=== PATIENT | female | born 1990 | race Caucasian/White ===

== ENCOUNTER 2016-06-21 01:09 | Emergency (ER) | payer MEDICAID ==
[~2016-06-21] VITALS: Ht 172.7 cm; Wt 109.5 kg
[2016-06-21 01:37] VITALS: Ht 172.7 cm; Wt 109.5 kg
[2016-06-21] MEDS ORDERED: ONDANSETRON 4 MG INJ IV STA (03:12)
[2016-06-21] MEDS ORDERED: SOD CHLORIDE 0.9% 1,000 ML IV STA (03:12)
[2016-06-21] MEDS ORDERED: PRENAT PO (03:18)
--- NOTE | 2016-06-21 03:18 | ERD ---
ER Documentation Chief Complaint Date/Time DATE: 06/21/16 TIME: 03:17 Chief Complaint 16 WKS WITH SEVERE N/V/D STARTING TODAY HPI 26-year-old female presents to emergency department for complaints of nausea vomiting diarrhea started today. Patient had 2 episodes of vomiting, multiple episodes of diarrhea. Patient is complaining of generalized abdominal pain, cramping pain, 4/10 scale, accompanying the symptoms. Patient's approximate 16 weeks . Patient also is complaining of bilateral flank pain. Patient denies any vaginal bleeding. Patient denies any vaginal discharge. ROS All systems reviewed and are negative except as per history of present illness. Medications Home Meds Reported Medications Multivit/Min/Fol Ac/Iron/Pren* ( S*) Unknown Strength Tab, PO DAILY, TAB 06/21/16 Allergies Allergies: Coded Allergies: No Known Allergy (Unverified , 06/21/16) PMhx/Soc Medical and Surgical Hx: pt denies Medical Hx, pt denies Surgical Hx FmHx Family History: No coronary disease, No diabetes, No other Physical Exam Vitals Vital Signs Date Time Temp Pulse Resp B/P Pulse Ox O2 Delivery O2 Flow Rate FiO2 06/21/16 01:37 98.1 79 18 155/70 99 Physical Exam GENERAL: The patient is well developed and appropriate for usual state of health, in no apparent distress. CHEST: Clear to auscultation bilaterally. There are no rales, wheezes or rhonchi. HEART: Regular rate and rhythm. No murmurs, clicks, rubs or gallops. No S3 or S4. ABDOMEN: Soft, nontender and nondistended. Hyperactive bowel sounds. No rebound or guarding. No gross peritonitis. No gross organomegaly or masses. No Balbuena sign or McBurney point tenderness. BACK: No midline or flank tenderness. EXTREMITIES: Equal pulses bilaterally. There is no peripheral clubbing, cyanosis or edema. No focal swelling or erythema. Full range of motion. Grossly neurovascularly intact. NEURO: Alert and oriented. Cranial nerves 2-12 intact. Motor strength in all 4 extremities with 5/5 strength. Sensation grossly intact. Normal speech and gait. SKIN: There is no apparent rash or petechia. The skin is warm and dry. HEMATOLOGIC AND LYMPHATIC: There is no evidence of excessive bruising or lymphedema. No gross cervical, axillary, or inguinal lymphadenopathy. Result Diagram: 06/21/16 0349 06/21/16 0349 Results 24 hrs Laboratory Tests Test 06/21/16 03:49 Alanine Aminotransferase (ALT/SGPT) 23IU/L Albumin 3.9g/dl Albumin/Globulin Ratio 1.14 Alkaline Phosphatase 51IU/L Anion Gap 19 Aspartate Amino Transf (AST/SGOT) 17IU/L Basophils # 0.010^3/ul Basophils % 0.1% Blood Urea Nitrogen 8mg/dl Calcium Level 8.9mg/dl Carbon Dioxide Level 21mmol/L Chloride Level 104mmol/L Creatinine 0.48mg/dl Direct Bilirubin 0.00mg/dl Eosinophils # 0.110^3/ul Eosinophils % 0.8% Globulin 3.40g/dl Glucose Level 87mg/dl Hematocrit 34.3% Hemoglobin 11.6g/dl Indirect Bilirubin 0.0mg/dl Lipase 65U/L Lymphocytes # 2.210^3/ul Lymphocytes % 15.4% Mean Corpuscular Hemoglobin 26.5pg Mean Corpuscular Hemoglobin Concent 33.8g/dl Mean Corpuscular Volume 78.5fl Mean Platelet Volume 10.4fl Monocytes # 0.810^3/ul Monocytes % 5.5% Neutrophils # 10.910^3/ul Neutrophils % 77.7% Nucleated Red Blood Cells # 0.010^3/ul Nucleated Red Blood Cells % 0.0/100WBC Platelet Count 47342^3/UL Potassium Level 3.6mmol/L Red Blood Count 4.3710^6/ul Red Cell Distribution Width 14.1% Sodium Level 140mmol/L Total Bilirubin 0.0mg/dl Total Protein 7.3g/dl Urine Bilirubin NEGATIVE Urine Clarity CLEAR Urine Color LT. YELLOW Urine Glucose NEGATIVE% Urine Hemoglobin 1+ Urine Ketones NEGATIVE Urine Leukocyte Esterase NEGATIVE Urine Microscopic RBC Pending Urine Microscopic WBC Pending Urine Nitrite NEGATIVE Urine Specific Sumner 1.025 Urine Total Protein NEGATIVE Urine Urobilinogen 0.2 E.U./dL Urine pH 6.0 White Blood Count 14.110^3/ul Current Medications Medications (Trade) Dose Ordered Sig/Jcarlos Route PRN Reason Start Time Stop Time Status Last Admin Dose Admin Sodium Chloride (NS) 1,000 ml @ 1,000 mls/hr Q1H STAT IV 06/21/16 03:12 06/21/16 04:11 DC 06/21/16 04:10 Ondansetron HCl (Zofran Inj) 4 mg ONCE STAT IV 06/21/16 03:12 06/21/16 03:14 DC Patient was given Zofran here in the emergency department. After treatment, patient was able to tolerate po fluids here in the emergency department without any vomiting. There is no signs and symptoms of dehydration. Normal saline IV bolus was given here in emergency department for rehydration, patient tolerated IV fluids. PROCEDURE: ULTRASOUND OBSTETRICAL CLINICAL INDICATION: 26-year-old female with pelvic pain. TECHNIQUE: Multiple sonographic images of the pelvis were obtained. The images were reviewed on a PACS workstation. COMPARISON: No prior studies are available for comparison. FINDINGS: The cervix is not well visualized. There is a single viable intrauterine gestation. Cardiac activity is present with 161 beats per minute. There is a variable presentation. Measurements were made in order to determine age. The results are as follows: BPD = 3.53 cm, HC = 12.83 cm, AC = 11.07 cm, FL = 2.38 cm. This yields and estimated gestational age of approximately 16 weeks 6 days. The estimated date of delivery is November 30, 2016. The EFW = 176 +/- 26 g. The GP is 79%. The placenta is posterior. There is no evidence for an abruption or placenta previa. There is an adequate amount of amniotic fluid with an the maximal vertical pocket of 4.5 cm. IMPRESSION: Single viable intrauterine gestation of approximately 16 weeks 6 days. The estimated date of delivery is November 30, 2016. .Hesham Gates MD, MD Date Time Electronically viewed and signed by .Hesham Gates MD, on 06/21/2016 04:36 Procedures/MDM Medical Decision Making: Patient's symptoms is like is consistent with viral gastroenteritis. No symptoms of dehydration at this time. ULTRASOUND shows a viable . There is low suspicion for abdominal emergencies at this time. Patients abdominal exam is normal at this time. Patients radiology exam does not show any abdominal emergencies at this time. There is low suspicion for appendicitis, cholecystitis, abdominal aortic aneurysms or peritonitis at this time. There is low suspicion for sepsis. Patient appears well and is hemodynamically stable. Disposition: Home. Condition: Stable Prescription Zofran, Tylenol Instructions: Patient is advised to take medications as prescribed. Patient is advised to rest, increase fluid intake and do brat diet for next 1-2 days and progress as tolerated. Patient is advised that if symptoms are worse, severe abdominal pain, uncontrolled vomiting, high fever, severe flank pain, worst signs and symptoms, to return to the emergency department immediately. Otherwise, patient can follow up with primary care doctor in 5-7 days. Departure Diagnosis: Primary Impression: Viral gastroenteritis Additional Impression: Intrauterine Condition: Stable Patient Instructions: Gastroenteritis, Viral (6Y-Adult) Additional Instructions: Patient is advised to take medications as prescribed. Patient is advised to rest, increase fluid intake and do brat diet for next 1-2 days and progress as tolerated. Patient is advised that if symptoms are worse, severe abdominal pain , uncontrolled vomiting, high fever, severe flank pain, worst signs and symptoms , to return to the emergency department immediately. Otherwise, patient can follow up with primary care doctor in 5-7 days. ARTIE GARAY NP Jun 21, 2016 03:18
[2016-06-21 04:02] LABS: ADD SCAN DIFF NO
[2016-06-21 04:08] LABS: ADD UMIC YES; BASOPHILS % 0.1 % (0.0-2.0); EOSINOPHILS # 0.1 10^3/ul (0.0-0.5); EOSINOPHILS % 0.8 % (0.0-7.0); HEMATOCRIT 34.3 % (37.0-47.0); HEMOGLOBIN 11.6 g/dl (12.0-16.0); LYMPHOCYTES # 2.2 10^3/ul (0.8-2.9); LYMPHOCYTES % 15.4 % (15.0-51.0); MEAN CORPUSCULAR HEMOGLOBIN 26.5 pg (29.0-33.0); MEAN CORPUSCULAR HGB CONC 33.8 g/dl (32.0-37.0); MEAN CORPUSCULAR VOLUME 78.5 fl (82.0-101.0); MEAN PLATELET VOLUME 10.4 fl (7.4-10.4); MONOCYTE # 0.8 10^3/ul (0.3-0.9); MONOCYTES % 5.5 % (0.0-11.0); NEUTROPHIL # 10.9 10^3/ul (1.6-7.5); NEUTROPHILS % 77.7 % (39.0-77.0); PLATELET COUNT 310 10^3/UL (140-415); RED BLOOD COUNT 4.37 10^6/ul (4.20-5.40); RED CELL DISTRIBUTION WIDTH 14.1 % (11.5-14.5); URINE BILIRUBIN (Dip) NEGATIVE (NEGATIVE); URINE BLOOD (Dip) 1+ (NEGATIVE); URINE COLOR LT. YELLOW (YELLOW); URINE GLUCOSE (Dip) NEGATIVE (NEGATIVE); URINE KETONES (Dip) NEGATIVE (NEGATIVE); URINE LEUKOCYTE ESTERASE (Dip) NEGATIVE (NEGATIVE); URINE NITRITE (Dip) NEGATIVE (NEGATIVE); URINE TOTAL PROTEIN (Dip) NEGATIVE (NEGATIVE); URINE UROBILINOGEN (Dip) 0.2 E.U./dL (0.1-1.0); WHITE BLOOD COUNT 14.1 10^3/ul (4.8-10.8)
[2016-06-21 04:19] LABS: ALBUMIN 3.9 g/dl (3.3-4.9); POTASSIUM 3.6 mmol/L (3.5-5.1)
[2016-06-21 04:21] LABS: CREATININE 0.48 mg/dl (0.44-1.00)
[2016-06-21 04:22] LABS: ALBUMIN/GLOBULIN RATIO 1.14; CALCIUM 8.9 mg/dl (8.4-10.2); TOTAL PROTEIN 7.3 g/dl (6.1-8.1)
--- NOTE | 2016-06-21 04:37 | RADRPT ---
PROCEDURE: ULTRASOUND OBSTETRICAL CLINICAL INDICATION: 26-year-old female with pelvic pain. TECHNIQUE: Multiple sonographic images of the pelvis were obtained. The images were reviewed on a PACS workstation. COMPARISON: No prior studies are available for comparison. FINDINGS: The cervix is not well visualized. There is a single viable intrauterine gestation. Cardiac activit y is present with 161 beats per minute. There is a variable presentation. Measurements were made in order to determine age. The results are as follows: BPD = 3.53 cm, HC = 12.83 cm, AC = 11.07 cm, FL = 2.38 cm. This yields and estimated gestational ag e of approximately 16 weeks 6 days. The estimated date of delivery is November 30, 2016. The EFW = 1 76 +/- 26 g. The GP is 79%. The placenta is posterior. There is no evidence for an abruption or placenta previa. There is an adequate amount of amniotic fluid with an the maximal vertical pocket of 4.5 cm. IMPRESSION: Single viable intrauterine gestation of approximately 16 weeks 6 days. The estimated date of delive ry is November 30, 2016. .Hesham Gates MD, Date Time Electronically viewed and signed by .Hesham Gates MD, on 06/21/2016 04:36 .M/
[2016-06-21] MEDS ORDERED: ONDA4TAB14 PO (04:52)
[2016-06-21] MEDS ORDERED: ACET500C5 PO (04:52)
[2016-06-21 04:53] LABS: BACTERIA,URINE FEW; SQUAMOUS EPITHELIAL CELL,UR FEW; URINE RBCS 0-2 /HPF (0)
[2016-06-21 05:14] VITALS: BP 136/80; PULSE 72; RESP 16
== END 2016-06-21 05:15 | disposition home or self-care (01) ==
LOC: FTE 01:09
DX: O99.612 Diseases of the digestive system complicating pregnancy, second trimester (principal); A08.4 Viral intestinal infection, unspecified; O21.9 Vomiting of pregnancy, unspecified; Z3A.16 16 weeks gestation of pregnancy
CPT/HCPCS: 36415; 76805; 80053; 81001; 83690; 85025; 86900; 86901; 96374; J7030; Z7502; 81003

== ENCOUNTER 2016-11-29 18:01 | Inpatient (IN) | payer MEDICAID, OTHER ==
[~2016-11-29] VITALS: Ht 172.7 cm; Wt 120.4 kg
[~2016-11-29 18:01] MED LIST: ACET500C5 PO; ONDA4TAB14 PO; PRENAT PO
[2016-11-29] MEDS ORDERED: OXYTOCIN 30 UNITS/LR 500 ML IV SCH (19:30)
[2016-11-29] MEDS ORDERED: MISOPROSTOL 200 MCG TAB PR PRN (19:30)
[2016-11-29] MEDS ORDERED: LIDOCAINE 1% (MPF) 30 ML INJ INJ PRN (19:30)
[2016-11-29] MEDS ORDERED: OXYTOCIN 30 UNITS/LR 500 ML IV PRN (19:30)
[2016-11-29] MEDS ORDERED: CARBOPROST 250 MCG INJ IM PRN (19:30)
[2016-11-29] MEDS ORDERED: METHYLERGONOVINE 0.2 MG INJ IM PRN (19:30)
[2016-11-29] MEDS ORDERED: IBUPROFEN 600 MG TAB PO PRN (19:30)
[2016-11-29] MEDS ORDERED: LACTATED RINGER'S 1,000 ML IV PRN (19:30)
[2016-11-29 19:49] LABS: BASOPHILS % 0.1 % (0.0-2.0); EOSINOPHILS # 0.1 10^3/ul (0.0-0.5); EOSINOPHILS % 1.2 % (0.0-7.0); HEMATOCRIT 33.4 % (37.0-47.0); HEMOGLOBIN 11.3 g/dl (12.0-16.0); LYMPHOCYTES # 2.6 10^3/ul (0.8-2.9); LYMPHOCYTES % 21.9 % (15.0-51.0); MEAN CORPUSCULAR HEMOGLOBIN 25.8 pg (29.0-33.0); MEAN CORPUSCULAR HGB CONC 33.8 g/dl (32.0-37.0); MEAN CORPUSCULAR VOLUME 76.3 fl (82.0-101.0); MEAN PLATELET VOLUME 10.6 fl (7.4-10.4); MONOCYTE # 0.9 10^3/ul (0.3-0.9); NEUTROPHILS % 68.4 % (39.0-77.0); PLATELET COUNT 311 10^3/UL (140-415); RED BLOOD COUNT 4.38 10^6/ul (4.20-5.40); RED CELL DISTRIBUTION WIDTH 15.8 % (11.5-14.5); WHITE BLOOD COUNT 11.7 10^3/ul (4.8-10.8)
[2016-11-29] MEDS: LACTATED RINGER'S 1,000 ML IV SCH (19:54)
[2016-11-29 20:03] LABS: INR 1.02; PROTIME 13.4 Sec (12.2-14.2)
[2016-11-29 20:04] LABS: PARTIAL THROMBOPLASTIN TIME 31.2 Sec (25.0-35.0)
[2016-11-29 20:07] LABS: ALBUMIN 3.7 g/dl (3.3-4.9); ALBUMIN/GLOBULIN RATIO 1.05; BILIRUBIN,INDIRECT 0.1 mg/dl (0-1.1); BILIRUBIN,TOTAL 0.1 mg/dl (0.2-1.3); CALCIUM 9.5 mg/dl (8.4-10.2); CREATININE 0.57 mg/dl (0.44-1.00); TOTAL PROTEIN 7.2 g/dl (6.1-8.1); URIC ACID 4.5 mg/dl (3.1-7.9)
[2016-11-29 21:50] LABS: ADD UMIC YES; UR ASCORBIC ACID NEGATIVE (NEGATIVE); UR BACTERIA FEW /HPF (NONE SEEN); UR BILIRUBIN (Dip) NEGATIVE (NEGATIVE); UR BLOOD (Dip) 1+ mg/dL (NEGATIVE); UR CLARITY CLEAR (CLEAR); UR COLOR STRAW (YELLOW); UR GLUCOSE (Dip) NEGATIVE (NEGATIVE); UR KETONES (Dip) TRACE mg/dL (NEGATIVE); UR LEUKOCYTE ESTERASE (Dip) NEGATIVE Leu/ul (NEGATIVE); UR NITRITE (Dip) NEGATIVE (NEGATIVE); UR RBC 2 /HPF (0-5); UR SPECIFIC GRAVITY (Dip) 1.011 (1.003-1.030); UR SQUAMOUS EPITHELIAL CELL FEW /HPF (FEW); UR TOTAL PROTEIN (Dip) NEGATIVE (NEGATIVE); UR UROBILINOGEN (Dip) NEGATIVE (NEGATIVE)
[2016-11-30] MEDS: LACTATED RINGER'S 1,000 ML IV SCH ×3 (02:21→19:42)
[2016-11-30] MEDS: BUTORPHANOL 2 MG INJ IV PRN ×2 (03:26→06:49)
[2016-11-30 05:43] VITALS: Ht 172.7 cm; Wt 120.4 kg
[2016-11-30 05:44] VITALS: BP 132/80; PULSE 80; RESP 16
[2016-11-30] MEDS ORDERED: FENTAnyl 2MCG/ML-ROPIV 0.2% 100 ML ONE (08:32)
--- NOTE | 2016-11-30 09:58 | RADRPT ---
PROCEDURE: US OB. CLINICAL INDICATION: Macrosomia TECHNIQUE: Multiple sonographic images of the pelvis were obtained. Transabdominal imaging only w as performed. The images were reviewed on a PACS workstation. COMPARISON: OB US dated 06/21/2016 FINDINGS: There is a single live intrauterine gestation. Cardiac activity is present with 141 beats per minut e. position is cephalic. Measurements were made in order to determine age. The results are as follows: BPD = 8.75 cm HC = 32.83 cm AC = 34.21 cm FL = 6.91 cm. Estimated gestational age of approximately 36 weeks 4 days. The estimated date of delivery is 12/24/2016. The EFW = 3109 g,17th %ile. The placenta is posterior. There is no evidence for an abruption or placenta previa. There are no adnexal masses. IMPRESSION: 1. Single live intrauterine gestation of approximately 36 weeks 4 days, by ultrasound criteria. 2. The estimated date of delivery is 12/24/2016. The previous estimated date of delivery was 11/30 based on US dated 06/21/2016. 3. The estimated weight is 3109 g, 17th %ile. RPTAT: HH .Barbara Bill MD, Date Time Electronically viewed and signed by .Barbara Bill MD, MD on 11/30/2016 09:57 .G/
[2016-11-30] MEDS ORDERED: FENTAnyl 2MCG/ML-ROPIV 0.2% 100 ML BAG EPI SCH (10:00)
[2016-11-30] MEDS ORDERED: NALOXONE (0.4 MG/ML) INJ IV PRN (10:00)
--- NOTE | 2016-11-30 10:00 | HP ---
Date/Time of Note Date/Time of Note DATE: 11/30/16 TIME: 09:58 OB - History Hx of Present Free Text/Dictation AT 39 WEEKS WITH INC IN BP. ADMITTD FOR INDUCTION Care: Good Care Ultrasounds: Normal mid trimester US Obstetrical Complications: None Medical Complications: None Past Family/Social History * Past Medical, Surgical, Family and Obstetric Histories reviewed from chart. OB Admission Exam Vital Signs Vital Signs Vital Signs Date Time Temp Pulse Resp B/P Pulse Ox O2 Delivery O2 Flow Rate FiO2 11/30/16 05:44 98.3 80 16 132/80 97 Room Air Physical Exam HEENT: WNL Heart: Rhythm Normal Lungs: Clear, Equal Abdomen: WNL Extremities: Normal Reflexes: Normal Cervical Dilatation: 4cm Effacement: 50% Station: -1 Membranes: Ruptured Amniotic Fluid: Clear Heart Rate: 130's Accelerations: Accelerations Present Decelerations: No Decelerations Last 72 hours Lab Results CBC & BMP 11/29/16 19:35 Liver Function Test 11/29/16 19:35 Alanine Aminotransferase (ALT/SGPT) 32 Albumin 3.7 Alkaline Phosphatase 123 H Aspartate Amino Transf (AST/SGOT) 18 Direct Bilirubin 0.00 Total Protein 7.2 OB Assessment/Plan Reason for admission: induction of labor Plan: Induction KULWINDER JOINER MD Nov 30, 2016 10:00
[2016-11-30] MEDS ORDERED: AMPICILLIN 2 GM/NS (PMX) 100 ML IVPB ONE (16:30)
[2016-11-30] MEDS: SODIUM CHLORIDE 0.9% 1L IRRIG IRR PRN ×2 (17:17→19:28)
[2016-11-30] MEDS ORDERED: MINERAL OIL LIGHT 10 ML VIAL TOP ONE (21:00)
[2016-11-30] MEDS ORDERED: AMPICILLIN 1 GM/NS (PMX) 50 ML IVPB SCH (21:00)
[2016-11-30] MEDS: OXYTOCIN 30 UNITS/LR 500 ML IV SCH ×2 (21:13→21:16)
--- NOTE | 2016-11-30 21:17 | LDN ---
Date/Time of Note Date/Time of Note DATE: 11/30/16 TIME: 21:09 Delivery Summary called at 6cm with decrease BBV with consecutive late deceleation for less than one hr uterine contraction was strong with IUPC VE complete with large caput but with one push head was coming down well in NNACY position Weeks of Gestation 39w4d Placenta Delivered: Spontaneously Meconium: none Episiotomy: No Perineal laceration: 0 Anesthesia type: Epidural Estimated blood loss: 50 Sponge & Needle done & correct: Yes All needle counts correct: Yes Any foreign bodies felt in the: No Problems: Infant Delivery Information Sex Sex: male Apgars 1 Minute: 9 5 Minute: 1 Suctioning Nose & mouth suctioned at octavia: Yes Delee suction performed: No Umbilical Cord Umbilical cord with: 3 Vessels Cord presentations: no nuchal cord Cord Blood was obtained: Yes Mother & Baby Disposition Disposition Mom & Baby to Maternity; Good: Yes Mom transferred to: Other () Baby to NICU: No GURINDER RODRÍGUEZ MD Nov 30, 2016 21:16
[2016-11-30] MEDS ORDERED: BENZOCAINE 20% 56 ML SPRAY TOP PRN (22:30)
[2016-11-30] MEDS ORDERED: WITCH HAZEL/GLYCERIN PAD PR PRN (22:30)
[2016-11-30] MEDS ORDERED: METHYLERGONOVINE 0.2 MG INJ IM PRN (22:30)
[2016-11-30] MEDS ORDERED: OXYCODONE/ASPIRIN (4.88/325) TAB PO PRN ×2 (22:30)
[2016-11-30] MEDS ORDERED: MISOPROSTOL 200 MCG TAB PR PRN (22:30)
[2016-11-30] MEDS ORDERED: ZOLPIDEM 5 MG TAB PO PRN (22:30)
[2016-11-30] MEDS ORDERED: OXYTOCIN 30 UNITS/LR 500 ML IV PRN (22:30)
[2016-11-30] MEDS ORDERED: LANOLIN 7 GM TUBE TOP PRN (22:30)
[2016-11-30] MEDS ORDERED: CARBOPROST 250 MCG INJ IM PRN (22:30)
[2016-11-30 22:45] VITALS: BP 138/80; PULSE 77; RESP 20
[2016-11-30] MEDS: IBUPROFEN 600 MG TAB PO SCH (23:32)
[2016-12-01 00:01] VITALS: BP 135/79; PULSE 82; RESP 20
[2016-12-01] MEDS: IBUPROFEN 600 MG TAB PO SCH ×5 (06:00→23:57)
[2016-12-01 07:56] LABS: ABNORMAL IP MESSAGE 1; BASOPHILS % 0.2 % (0.0-2.0); EOSINOPHILS # 0.1 10^3/ul (0.0-0.5); EOSINOPHILS % 0.4 % (0.0-7.0); HEMATOCRIT 30.5 % (37.0-47.0); HEMOGLOBIN 9.9 g/dl (12.0-16.0); LYMPHOCYTES # 2.7 10^3/ul (0.8-2.9); LYMPHOCYTES % 13.1 % (15.0-51.0); MEAN CORPUSCULAR HEMOGLOBIN 24.8 pg (29.0-33.0); MEAN CORPUSCULAR HGB CONC 32.5 g/dl (32.0-37.0); MEAN CORPUSCULAR VOLUME 76.4 fl (82.0-101.0); MEAN PLATELET VOLUME 11.1 fl (7.4-10.4); MONOCYTE # 1.8 10^3/ul (0.3-0.9); MONOCYTES % 8.8 % (0.0-11.0); NEUTROPHILS % 77.1 % (39.0-77.0); PLATELET COUNT 271 10^3/UL (140-415); RED BLOOD COUNT 3.99 10^6/ul (4.20-5.40); RED CELL DISTRIBUTION WIDTH 15.9 % (11.5-14.5); WHITE BLOOD COUNT 20.7 10^3/ul (4.8-10.8)
[2016-12-01 08:00] VITALS: BP 118/57; PULSE 78; RESP 18
[2016-12-01 08:04] LABS: POSITIVE DIFF @See below
[2016-12-01] MEDS: SENNA/DOCUSATE NA (8.6MG/50MG) TAB PO SCH ×2 (08:50→20:50)
--- NOTE | 2016-12-01 12:09 | PN ---
Date/Time of Note Date/Time of Note DATE: 12/01/16 TIME: 12:05 OB Subjective Subjective Subjective Denies any complaint, ambulating. Breast-feeding. Reports some trouble with breast-feeding in the left nipple. Has been seen by team. Vaginal bleeding in the amount of menses.. Denies any other complaints. Desires her son to be circumcised prior to discharge home OB Objective Objective Objective GA: A&O, NAD, obese Abdomen: Soft, fundus firm and nontender. Fundus palpable at the level of umbilicus Extremities: No calf tenderness, no click no edema Breasts: No evidence of engorgement or mastitis. No evidence of nipple fissure. Hematology - 72 Hrs Test 11/29/16 19:35 12/01/16 06:53 White Blood Count 11.710^3/ul (4.8-10.8) H 20.710^3/ul (4.8-10.8) #H Red Blood Count 4.3810^6/ul (4.20-5.40) 3.9910^6/ul (4.20-5.40) L Hemoglobin 11.3g/dl (12.0-16.0) L 9.9g/dl (12.0-16.0) L Hematocrit 33.4% (37.0-47.0) L 30.5% (37.0-47.0) L Mean Corpuscular Volume 76.3fl (82.0-101.0) L 76.4fl (82.0-101.0) L Mean Corpuscular Hemoglobin 25.8pg (29.0-33.0) L 24.8pg (29.0-33.0) L Mean Corpuscular Hemoglobin Concent 33.8g/dl (32.0-37.0) 32.5g/dl (32.0-37.0) Red Cell Distribution Width 15.8% (11.5-14.5) H 15.9% (11.5-14.5) H Platelet Count 79023^3/UL (140-415) 76796^3/UL (140-415) Mean Platelet Volume 10.6fl (7.4-10.4) H 11.1fl (7.4-10.4) H Neutrophils % 68.4% (39.0-77.0) 77.1% (39.0-77.0) H Lymphocytes % 21.9% (15.0-51.0) 13.1% (15.0-51.0) L Monocytes % 8.0% (0.0-11.0) 8.8% (0.0-11.0) Eosinophils % 1.2% (0.0-7.0) 0.4% (0.0-7.0) Basophils % 0.1% (0.0-2.0) 0.2% (0.0-2.0) Nucleated Red Blood Cells % 0.0/100WBC (0.0-0.0) 0.0/100WBC (0.0-0.0) Neutrophils # (Manual) 810^3/ul (1.7-7.5) H 1610^3/ul (1.7-7.5) H Lymphocytes # 2.610^3/ul (0.8-2.9) 2.710^3/ul (0.8-2.9) Monocytes # 0.910^3/ul (0.3-0.9) 1.810^3/ul (0.3-0.9) H Eosinophils # 0.110^3/ul (0.0-0.5) 0.110^3/ul (0.0-0.5) Basophils # 0.010^3/ul (0.0-0.1) 0.010^3/ul (0.0-0.1) Nucleated Red Blood Cells # 0.010^3/ul (0.0-0.0) 0.010^3/ul (0.0-0.0) Chemistry Test 11/29/16 19:35 Sodium Level 135mmol/L (135-144) Potassium Level 4.0mmol/L (3.5-5.1) Chloride Level 104mmol/L (97-110) Carbon Dioxide Level 20mmol/L (21-31) L Anion Gap 15 (8-16) Blood Urea Nitrogen 9mg/dl (7-20) Creatinine 0.57mg/dl (0.44-1.00) Glucose Level 80mg/dl (70-220) Uric Acid 4.5mg/dl (3.1-7.9) Calcium Level 9.5mg/dl (8.4-10.2) Total Bilirubin 0.1mg/dl (0.2-1.3) L Direct Bilirubin 0.00mg/dl (0.00-0.20) Indirect Bilirubin 0.1mg/dl (0-1.1) Aspartate Amino Transf (AST/SGOT) 18IU/L (15-46) Alanine Aminotransferase (ALT/SGPT) 32IU/L (13-69) Alkaline Phosphatase 123IU/L (42-121) H Total Protein 7.2g/dl (6.1-8.1) Albumin 3.7g/dl (3.3-4.9) Globulin 3.50g/dl (1.3-3.2) H Albumin/Globulin Ratio 1.05 OB Assessment/Plan Other Assessment: Status post Doing well anemia, likely under estimated blood loss, doing well and asymptomatic Desires her son to be circumcised prior to discharge home We will plan to have circumcision tomorrow by Dr. Crawford . Plan: Expectant Management Other plan: Routine care JOSUÉ HERRERA MD Dec 01, 2016 12:08
[2016-12-01 16:00] VITALS: BP 115/64; PULSE 81; RESP 18
[2016-12-01 20:00] VITALS: BP 123/58; PULSE 82; RESP 18
[2016-12-02 04:16] VITALS: BP 123/58; PULSE 71; RESP 18
[2016-12-02] MEDS: IBUPROFEN 600 MG TAB PO SCH ×2 (06:34→12:24)
[2016-12-02 09:00] VITALS: BP 140/80; PULSE 70; RESP 18
[2016-12-02] MEDS: SENNA/DOCUSATE NA (8.6MG/50MG) TAB PO SCH (09:00)
[2016-12-02] MEDS ORDERED: DIPHTH/TET/ACEL PERTUSS (ADULT) 0.5 ML VIAL IM* ONE (09:00)
--- NOTE | 2016-12-02 11:55 | DS ---
Date/Time of Note Date/Time of Note DATE: 12/02/16 TIME: 11:51 Post C section day 2 Doing Well Afebrile Ambulatory Chest Clear Breasts are soft , Nipples are intact Abdomen is soft Fundus is firm Moderate amount of lochia Incision is clean ,No evidence of infection No calf tenderness No ankle edema Current Medications Medications (Trade) Dose Ordered Sig/Jcarlos Route PRN Reason Start Time Stop Time Status Last Admin Dose Admin Lactated Ringer's 1,000 ml @ 125 mls/hr Q8H IV 11/29/16 19:18 11/30/16 22:27 DC 11/30/16 19:42 Oxytocin/Lactated Ringer's 500 ml @ 0 mls/hr TITRATE IV 11/29/16 19:30 11/30/16 22:27 DC 11/29/16 20:46 Butorphanol Tartrate (Stadol) 2 mg Q2H PRN IV PAIN 11/29/16 19:30 11/30/16 22:27 DC 11/30/16 06:49 Lidocaine 30 ml 30 ml ONCE PRN INJ EPISIOTOMY/TEARING 11/29/16 19:30 11/30/16 22:27 DC Oxytocin/Lactated Ringer's 500 ml @ 125 mls/hr ONCE -MAY REPEAT X1 IV 11/29/16 19:30 11/30/16 22:27 DC 11/30/16 21:16 Ibuprofen 600 mg 600 mg ONCE PRN PO Mild Pain (Pain Score 1-3) 11/29/16 19:30 11/30/16 22:28 DC Lactated Ringer's 1,000 ml @ 2,000 mls/hr Q30M PRN IV PRE-EPIDURAL BOLUS 11/29/16 19:30 11/30/16 22:28 DC 11/30/16 08:07 Oxytocin/Lactated Ringer's 500 ml @ 0 mls/hr ONCE PRN IV For Hemorrhage Management 11/29/16 19:30 11/30/16 22:28 DC Methylergonovine Maleate (Methergine) 0.2 mg ONCE PRN IM VAGINAL BLEEDING 11/29/16 19:30 11/30/16 22:28 DC Carboprost Tromethamine (Hemabate) 250 mcg ONCE PRN IM VAGINAL BLEEDING 11/29/16 19:30 11/30/16 22:28 DC Misoprostol 1000 mcg 1,000 mcg ONCE PRN CO VAGINAL BLEEDING 11/29/16 19:30 11/30/16 22:28 [facility] 11/30/16 08:32 11/30/16 08:33 DC Naloxone HCl (Narcan) 0.2 mg Q2M PRN IV FOR RESP RATE 8 OR LESS 11/30/16 10:00 11/30/16 22:28 DC Fentanyl/ Ropivacaine 100 ml 100 ml EPIDURAL (PCEA) EPI 11/30/16 10:00 11/30/16 22:28 DC 11/30/16 14:26 Ampicillin 100 ml @ 100 mls/hr ONCE ONCE IVPB 11/30/16 16:30 11/30/16 17:29 DC 11/30/16 16:32 Ampicillin (Ampicillin 1 Gm/ NS (Pmx)) 50 ml @ 100 mls/hr Q4 IVPB 11/30/16 21:00 11/30/16 22:28 DC 11/30/16 20:24 Sodium Chloride (NS (Irrig)) 1,000 ml PRN PRN IRR NOTE 11/30/16 17:00 11/30/16 22:28 DC 11/30/16 19:28 Mineral Oil (Muri-Lube) ONCE ONCE TOP 11/30/16 21:00 11/30/16 21:01 DC Ibuprofen (Motrin) 600 mg Q6 PO 12/01/16 00:00 12/02/16 06:34 Oxycodone/Aspirin (Percodan) 1 tab Q3H PRN PO PAIN LEVEL 1-5 11/30/16 22:30 12/01/16 00:17 Oxycodone/Aspirin (Percodan) 2 tab Q3H PRN PO PAIN LEVEL 6-10 11/30/16 22:30 Zolpidem Tartrate (Ambien) 5 mg QHS PRN PO INSOMNIA 11/30/16 22:30 Senna/Docusate Sodium (Senokot-S) 1 tab BID PO 12/01/16 09:00 12/02/16 09:00 Witch Siomara/ Glycerin (Tucks Pads) 1 pad BEDSIDE MEDICATION PRN CO HEMORRHOID/EPISIOTMY PAIN 11/30/16 22:30 11/30/16 23:33 Benzocaine (Dermoplast Eleele) 1 spray BEDSIDE MEDICATION PRN TOP HEMORRHOID/EPISIOTMY PAIN 11/30/16 22:30 11/30/16 23:33 Lanolin (Wqq-C-Doefur) 1 applic BEDSIDE MEDICATION PRN TOP BEDSIDE FOR AJNEY TO NIPPLES 11/30/16 22:30 11/30/16 23:33 Diphtheria/ Tetanus/Acell Pertussis 0.5 ml 0.5 ml ONCE ONCE IM* 12/02/16 09:00 12/02/16 09:01 DC Oxytocin/Lactated Ringer's 500 ml @ 0 mls/hr ONCE PRN IV For Hemorrhage Management 11/30/16 22:30 12/01/16 02:32 Methylergonovine Maleate (Methergine) 0.2 mg ONCE PRN IM VAGINAL BLEEDING 11/30/16 22:30 Carboprost Tromethamine (Hemabate) 250 mcg ONCE PRN IM VAGINAL BLEEDING 11/30/16 22:30 Misoprostol (Cytotec) 1,000 mcg ONCE PRN CO VAGINAL BLEEDING 11/30/16 22:30 New born is doing well, Breast feeding and will be circumcised by Dr Crawford Obstetrical Discharge Record Final Diagnosis Final Diagnosis: Term delivered Vaginal Delivery Obstetrical Delivery: Spontaneous Condition on Discharge Physical Assessment Voiding: Yes Bowel Movement: Yes Breast: Soft, non-tender Fundus: Firm Calf Tenderness: Yes Patient Condition: Good GIA STANLEY MD Dec 02, 2016 11:55
== END 2016-12-02 18:45 | disposition home or self-care (01) | DRG 775 ==
LOC: L-D 18:01 → PP1 11-30 22:38
PROVIDERS: ADMIT Obstetrics & Gynecology; ATTEND Obstetrics & Gynecology
PROC: 10E0XZZ Delivery of Products of Conception, External Approach (ICD-10-PCS; principal; 2016-11-30)
PROC: 3E033VJ Introduction of Other Hormone into Peripheral Vein, Percutaneous Approach (ICD-10-PCS; 2016-11-30)
DX: O80 Encounter for full-term uncomplicated delivery (principal); Z37.0 Single live birth; Z3A.39 39 weeks gestation of pregnancy
CPT/HCPCS: 62319; 76815; 80053; 81001; 84560; 85025; 85384; 85610; 85730; 86592; 86900; 86901; 87340; 90715; J0290; J0595; J2590; J3010; J7120